=== PATIENT | male | born 1950 | race Caucasian/White ===

== ENCOUNTER 2025-04-14 08:49 | Day surgery (SDC) | payer OTHER, SELFPAY ==
[2025-04-14] VITALS (14 sets, daily range): BP systolic 133–164; BP diastolic 75–111; BMI 26.4
[2025-04-14] MEDS: NSS 251 ML IV (10:13)
[2025-04-14] MEDS: LOW STRENGTH ASPIRIN 162 MG PO (10:18)
[2025-04-14 11:49] LABS: ACT-LR - POC 342 Seconds (116-155)
[2025-04-14] MEDS: ATROPINE 0.1 MG/ML SYRINGE 1 MG IV (13:00)
--- NOTE | 2025-04-14 13:06 | PTCARENOTE ---
[facility] in laboratory chemist due to low hr . atropine 0.5 and then 2nd dose atropine 0.5 . pt still 05/11 .
[2025-04-14] MEDS: ZOFRAN 4 MG IV (13:10)
[2025-04-14] MEDS: SUBLIMAZE 25 MCG IV (13:12)
--- NOTE | 2025-04-14 13:15 | PTCARENOTE ---
pt still co cp 8/10 bp 137/77 hr 103, sat 97 rr 20/ 2 mg morphine ordered
--- NOTE | 2025-04-14 13:21 | PTCARENOTE ---
02 nc 4l applied when zofran and fentanly given at 109pm
[2025-04-14] MEDS: MORPHINE SULFATE 2 MG IV (13:32)
--- NOTE | 2025-04-14 13:40 | PTCARENOTE ---
pt chest pain down to 4/10
--- NOTE | 2025-04-14 15:05 | PTCARENOTE ---
pt states chest pain is now a 1/10. he is sitting up , eating and drinking without difficulty or nausea .
--- NOTE | 2025-04-14 16:24 | W.PN.UPDATE ---
Update Note
Progress Note Update
Pt seen post LAD PCI, c/o 10/10 chest pain. EKG NSR without acute changes. BP 150s. Given 1 SL NTG. Within 5 minutes, pt had vagal response with HR 20s, SBP 80s. Given 1mg atropine with good response, HR up to 80s with SBP 130s, still c/o chest
pain. Given fentanyl 25mcg as well as morphine 2mg. Now comfortable with 1-2/10 chest pain. This is likely post arterial balloon expansion pain. A bedside echo revealed nml LV function and no pericardial effusion.
Will admit pt to IVU for overnight telemetry observation.
--- NOTE | 2025-04-14 16:51 | CM ---
Chart reviewed. Patient is independent of ADLS, lives with his in a 2 STH, 1st level set up, 1 RITA, 0 DME. Plan is for the patient to return home.
--- NOTE | 2025-04-14 18:15 | PTCARENOTE ---
Pt received from cath recovery area post cardiac cath done via right radial artery. Pt reported 1/10 chest discomfort on arrival to IVU which resolved. Pt is aware of some 'skipped heart beats and a feeling like going down a roller coaster', some
bigeminy noted on telemetry. Right radial band removed without problem per protocol, no bleeding or hematoma noted. Pt voiding without difficulty.
[2025-04-14] MEDS: PEPCID 20 MG PO (19:38)
[2025-04-14] MEDS: TOPROL XL 25 MG PO (19:39)
--- NOTE | 2025-04-14 19:42 | ITS.CL.CATH ---
[facility] - Catheterization
Cardiac Catheterization
Procedure Report:
LEFT HEART CATHETERIZATION
Date of Procedure: April 14, 2025
Procedures performed:
1: Coronary angiography
2: Left ventricular hemodynamic assessment
3: Percutaneous coronary intervention of the left anterior descending artery with placement of a 3.0 x 22 mm Rush drug-eluting stent
Primary Care Physician: Dr. Sha Sibley
Primary Information Developer: Dr. Jose Jasso
INDICATION: The patient is a 74-year-old man with a past medical history significant for hypertension and hyperlipidemia who presents with accelerated crescendo angina. Echocardiogram performed on April 12 showed normal LV systolic function with no
regional wall motion abnormality and no significant valvular heart disease.
ACCESS: The patient was prepped and draped in usual sterile fashion. A 6 Georgian sheath was placed in the right radial artery using the Seldinger over the wire technique.
HEMODYNAMIC FINDINGS (mmHg):
LV(s/d,EDP): 147/11, 18
Ao(s/d,m): 147/77, 109
ANGIOGRAPHIC FINDINGS:
Single-plane Left Ventriculography in NICOLAS Projection: Not done
Coronary Angiography:
Dominance: Right
Left Main: Medium caliber, widely patent.
Left Anterior Descending: The left anterior descending artery is a medium caliber vessel that gives rise to 1 medium caliber diagonal branch. The mid LAD has moderate luminal irregularities followed by a preocclusive focal 99% mid LAD with KM II
distal flow in the apical vessel. The diagonal branch has moderate nonobstructive disease with normal flow.
Left Circumflex: The left circumflex is a relatively large caliber vessel that gives rise to a medium caliber high first obtuse marginal branch. The proximal vessel has moderate diffuse disease with at worst 2 tandem 50 to 60% stenoses in the mid
vessel with normal distal flow. The circumflex continues to give rise to 2 very small OM's and terminates in 3 medium caliber left-sided posterior left ventricular branches.
Right Coronary: The right coronary artery is a relatively small caliber but dominant vessel that gives rise to a medium caliber posterior descending artery. These vessels are widely patent with only mild luminal irregularities. A septal to septal
collateral is noted to the LAD.
Percutaneous Coronary Intervention (PCI): In light of the patient's symptoms and the above angiographic findings I chose to perform a PCI on the LAD. The patient was pretreated with aspirin. A loading dose of clopidogrel 600 mg was given on the
table at the end of the intervention. The patient was given unfractionated heparin. A 6 Georgian XB 3.0 guiding catheter was used to engage the left main. A Fielder XT wire was successfully advanced across the preocclusive stenosis. Distal
intraluminal position was confirmed with a [employer] QuickCross catheter injection. Predilation was performed with a 2.0 x 12 mm balloon. This restored antegrade flow. Next a 3.0 x 22 mm Rush drug-eluting stent was deployed at the lesion.
The stent was postdilated with a 3.0 mm diameter noncompliant balloon at 16 ivon. This was done in a distal to proximal fashion taking care to stay within the stented margins.
FINAL RESULT: 0% in-stent residual stenosis with an excellent angiographic result and KM-3 flow in all vessels.
Fluoroscopy Time (min): 9.5
Radiation Dose (mGy): 423
DAP (Gy.cm2): 23
Closure device: None. A TR band was applied for hemostasis at the right wrist.
Complications: None.
ASSESSMENT:
1: Successful PCI of the LAD with placement of a drug-eluting stent as described above.
2: Residual moderate OM1 disease. I suspect this is not flow-limiting and can be treated medically.
3: Normal left ventricular filling pressures.
CONCLUSIONS and RECOMMENDATIONS:
1: Routine post PCI medical therapy and monitoring. Dual antiplatelet therapy with aspirin and Plavix uninterrupted for a year and aspirin 81 mg daily without interruption indefinitely.
2: Aggressive medical therapy for coronary artery disease.
3: Clinical follow-up as scheduled with Dr. Jasso
Javad Maya M.D.
Copy to: Dr. Sha Sibley
--- NOTE | 2025-04-14 22:02 | PTCARENOTE ---
Received patient at change of shift. SR on the monitor with PVCs and occasional bigeminy, HR in the 60s. R radial dressing CDI, no evidence of hematoma. Reinforced activity restrictions, pt verbalizes understanding. No complaints from pt at this
time, call hays within reach.
[2025-04-15 02:54] VITALS: BP 174/98
[2025-04-15 03:21] VITALS: BP 171/101
[2025-04-15 03:35] LABS: Hematocrit 42.2 % (39.0-52.0); Hemoglobin 15.3 g/dL (13.0-18.0); Mean Corp Hgb Conc. 36.3 g/dL (33.0-37.0); Mean Corpuscular Hgb 32.6 pg (27.0-31.0); Mean Corpuscular Volume 89.8 fL (80.0-94.0); Platelet Count 143 10^3/uL (130-400); Red Cell Dist. Width 12.2 % (11.5-14.5); White Blood Cell Count 5.8 10^3/uL (4.8-10.8)
[2025-04-15 03:52] LABS: Blood Urea Nitrogen 19 mg/dl (9-20); Calcium 8.8 mg/dl (8.4-10.2); Carbon Dioxide 25 mmol/L (22-30); Chloride 108 mmol/L (98-107); Estimated Creatinine Clearance 85 ml/min; Glucose 100 mg/dl (70-99); HDL Cholesterol 40 mg/dl; LDL Cholesterol, Calculated 149 mg/dl; Potassium 4.2 mmol/L (3.5-5.1); Sodium 139 mmol/L (135-145); Total Cholesterol 207 mg/dl (50-199); Triglyceride 93 mg/dl (10-149); Very Low Density Lipoprotein 18 mg/dl (0-30); eGFR > 60.00
[2025-04-15 07:38] VITALS: BP 181/98
[2025-04-15] MEDS: PLAVIX 75 MG PO (07:58)
[2025-04-15] MEDS: ORETIC 6.25 MG PO (07:59)
[2025-04-15] MEDS: COZAAR 25 MG PO (08:00)
[2025-04-15] MEDS: TOPROL XL 25 MG PO (08:00)
[2025-04-15] MEDS: PEPCID 20 MG PO (08:00)
[2025-04-15] MEDS: LOW STRENGTH ASPIRIN 81 MG PO (08:00)
--- NOTE | 2025-04-15 09:33 | W.PN.CARDCBS ---
Addendum entered and electronically signed by Apolonia Flores DO 04/15/25 12:44:
I saw and examined the patient.
The Pediatrics Physician's note was reviewed and I agree with the note.
Comment: Patient was seen and examined. Offers no complaints of chest pain or pressure. No shortness of breath.
General: No acute distress, AAOX3
Neck: Negative JVD
Heart: Regular, positive S1/S2, No murmur
Lungs: CTA
Abd: Positive BS, NT/ND, neg rebound/rigidity/guarding
Ext: No edema. Right radial site intact
Neuro: nonfocal
Plan:
Unstable angina status post LAD PCI with a 3X 22 mm Rush JIMENEZ 04/14/2025
- Hemodynamically stable with no chest pain or shortness of breath
- Post PCI had vasovagal episode
- Blood pressure elevated this morning with symptomatic frequent PVCs and bigeminy on telemetry in the setting of held antihypertensive therapy
- Will resume outpatient medical therapy including metoprolol succinate 25 mg twice daily.
- Will monitor blood pressure trends following administration of outpatient medications and continue to watch telemetry
- Ambulate patient in the acuna
- If symptoms and blood pressure improved with plan for discharge home later today
- Continue uninterrupted dual antiplatelet therapy with aspirin/Plavix for at least 1 year
- Suboptimal LDL at 149/increase rosuvastatin to 20 mg daily and repeat in 3 months
- Cardiac rehab consulted and strongly advised outpatient cardiac rehab
- Anticipate discharge home later today pending reassessment this afternoon
Original Note:
Today's Communication / Plan
-
post PCI, events post cath noted
resume home meds
increase rosuvastatin
possibly home later today
Impression / Plan
-
Primary Care Physician: Dr. Sha Sibley
Primary Ethics Manager: Dr. Jose Jasso
74-year-old man with a past medical history significant for hypertension and hyperlipidemia who presents with accelerated crescendo angina. Echocardiogram performed on April 12 showed normal LV systolic function with no regional wall motion
abnormality and no significant valvular heart disease.
Impression:
Crescendo Angina
CAD post PCI LAD with 3.0 x 22 mm Rush JIMENEZ 04/14/25
Hyperlipidemia
HTN
HARSHAL
Plan:
post PCI had significant CP and vasovagal episode post procedure
this am feels great, no CP, sob
BP elevated, tele with symptomatic PVCs with bigeminy
Resume home meds losartan-HCTZ, metoprolol
DAPT ASA/Plavix
LDL 149 will increase rosuvastatin to 20mg daily
cardiac rehab c/s
oob ambulate
if bp/ PVC's improved plan for d/c home this afternoon
Progress Note - Ethics Manager
Subjective
Date of Service: April 15, 2025
denies cp, sob
Objective
Labs:
04/15/25 02:58
04/15/25 02:58
Labs
Hgb 15.3 g/dL (13.0-18.0) 04/15/25 02:58
Hct 42.2 % (39.0-52.0) 04/15/25 02:58
Plt Count 143 10^3/uL (130-400) 04/15/25 02:58
Sodium 139 mmol/L (135-145) 04/15/25 02:58
Potassium 4.2 mmol/L (3.5-5.1) 04/15/25 02:58
BUN 19 mg/dl (9-20) 04/15/25 02:58
Creatinine 0.8 mg/dL (0.7-1.3) 04/15/25 02:58
Glucose 100 mg/dl (70-99) H 04/15/25 02:58
Vital Signs and I&O:
Vital Signs
Temp Pulse Resp BP Pulse Ox
98.3 F 69 20 181/98 97
04/15/25 07:39 04/15/25 08:15 04/15/25 07:39 04/15/25 07:38 04/15/25 08:21
Vital Signs
Temp Pulse Resp BP Pulse Ox
98.3 F 69 20 181/98 97
04/15/25 07:39 04/15/25 08:15 04/15/25 07:39 04/15/25 07:38 04/15/25 08:21
Intake & Output
04/13/25 04/14/25 04/15/25 04/16/25
06:59 06:59 06:59 06:59
Intake Total 1740 / 1740
Output Total 300 / 300
Balance 1440 / 1440
Physical Exam
Physical Exam
NAD< AOX3
S1, S2, RRR
CTAB, non labored
SNTND bsx4
R rad site c/d/i no HT, good pulse
--- NOTE | 2025-04-15 10:43 | CM ---
Chart reviewed. Patient is independent of ADLS, lives alone in a 2 STH, 1st level set up, 1 RITA, 0 DME. Plan is for the patient to return home. CM to follow
[2025-04-15 11:03] VITALS: BP 158/94
--- NOTE | 2025-04-15 13:29 | PTCARENOTE ---
Pt seen by Bhavya Martin NP and . pt waking around unit without problem. Telemetry and IV device removed. Discharge instructions revoiewed with pt and his regarding activity and driving guidelines, wound care, medications and their
possible side effects, reporting cares and concerns and follow up appt's. Very good understanding verbalized. pt escorted out via wheelchair and discharged to home.
--- NOTE | 2025-04-15 14:08 | W.DS.TRANS ---
DC Summary - Reuse Technician
-
Discharge Instructions:
Discharge Diagnosis/Procedures Angioplasty and stent to Left Anterior
Descending artery
Diet Low Cholesterol
Driving Restrictions No driving for 24 hours
Other Services Cardiac Rehab
Instructions:
Stand-Alone Forms: DC Instructions- Cath/EP Lab
Changes to Home Medications: Yes
Discharge Medications:
DC Medications w/original date entered in [employer]
ascorbic acid (vitamin C) 500 mg tablet (Vitamin C) 500 mg PO BID 04/14/25
aspirin 81 mg chewable tablet 81 mg PO DAILY 04/14/25
clopidogrel 75 mg tablet 75 mg PO DAILY #90 tabs 04/14/25
famotidine 20 mg tablet 20 mg PO BID 04/14/25
losartan 50 mg-hydrochlorothiazide 12.5 mg tablet 0.5 tab PO DAILY 04/14/25
metoprolol succinate 25 mg tablet,extended release 24 hr 25 mg PO BID 04/14/25
multivitamin 1 tab PO DAILY 04/14/25
rosuvastatin 20 mg tablet 20 mg PO QPM #30 tabs 04/15/25
Home Medication Changes
new to plavix, increased rosuvastatin dose
Pending Results: No
== END 2025-04-15 13:32 | disposition home or self-care (01) ==
LOC: CATH 08:49
PROVIDERS: Nurse Practitioner; ATTENDING PHYSICIAN Internal Medicine Interventional Cardiology; OTHER PHYSICIAN Internal Medicine; PRIMARYCARE PHYSICIAN Family Medicine
DX: I25.10 Atherosclerotic heart disease of native coronary artery without angina pectoris (principal); Z79.82 Long term (current) use of aspirin; Z79.02 Long term (current) use of antithrombotics/antiplatelets; Z79.899 Other long term (current) drug therapy; E78.5 Hyperlipidemia, unspecified; G47.33 Obstructive sleep apnea (adult) (pediatric); I10 Essential (primary) hypertension; I25.110 Atherosclerotic heart disease of native coronary artery with unstable angina pectoris; I49.3 Ventricular premature depolarization; Z95.5 Presence of coronary angioplasty implant and graft
CPT/HCPCS: 80048; 80061; 85027; 85347; 93005; 93308; 93321; 93325; 93458; C1725; C1769; C1874; C1894; C9600; Q9967

== ENCOUNTER 2025-04-18 18:31 | Day surgery (SDC) | payer OTHER, SELFPAY ==
[2025-04-18] VITALS (10 sets, daily range): BP systolic 125–162; BP diastolic 75–88; BMI 26.7
[2025-04-18 14:34] LABS: % Basophils 1.3 % (0-2); % Eosinophils 3.4 % (0-6); % Immature Granulocytes 0.2 % (0-0.5); % Lymphocytes 23.4 % (20.5-51.1); % Neutrophils 55.7 % (42.2-75.2); Absolute Basophils 0.1 10^3/uL (0-0.2); Absolute Eosinophils 0.2 10^3/uL (0-0.7); Absolute Lymphocytes 1.1 10^3/uL (1.2-3.4); Absolute Monocytes 0.8 10^3/uL (0.1-0.6); Absolute Neutrophils 2.7 10^3/uL (1.4-6.5); Hemoglobin 16.5 g/dL (13.0-18.0); Mean Corp Hgb Conc. 35.1 g/dL (33.0-37.0); Mean Corpuscular Hgb 32.7 pg (27.0-31.0); Mean Corpuscular Volume 93.3 fL (80.0-94.0); Nucleated Red Blood Cells % 0 % (-); Platelet Count 169 10^3/uL (130-400); Red Blood Cell Count 5.04 10^6/uL (4.70-6.10); Red Cell Dist. Width 12.7 % (11.5-14.5); White Blood Cell Count 4.8 10^3/uL (4.8-10.8)
[2025-04-18 14:43] LABS: ALT (SGPT) 36 U/L (0-50); AST (SGOT) 18 U/L (17-59); Alkaline Phosphatase 37 U/L (38-126); Blood Urea Nitrogen 28 mg/dl (9-20); Calcium 9.8 mg/dl (8.4-10.2); Carbon Dioxide 28 mmol/L (22-30); Chloride 105 mmol/L (98-107); Estimated Creatinine Clearance 85 ml/min; Glucose 76 mg/dl (70-99); Potassium 4.4 mmol/L (3.5-5.1); Sodium 141 mmol/L (135-145); Total Bilirubin 1.8 mg/dl (0.2-1.3); Total Protein 7.5 g/dl (6.3-8.2); eGFR > 60.00
--- NOTE | 2025-04-18 14:50 | ED.GENMED ---
History of Present Illness
General
Chief Complaint: Chest Pain
Source: patient and records
Exam Limitations: none
Time Seen by Provider: 04/18/25 14:13
History of Present Illness
History of Present Illness:
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 Maya stayed overnight, stent was placed in his LAD developed chest pain today with coming out of sikhism lasted about half hour in his left arm
into his chest somewhat different than his prior angina, relieved with aspirin
No fevers no nausea vomiting or diaphoresis has been compliant with all his meds
Phy Exam
Physical Exam
Physical Exam:
Physical Exam
General: no apparent distress, not acutely ill
Neck: No jaundice
Heart: s1/s2 regular rate and rhythm, no murmur. equal radial pulses.
Lungs: no acute respiratory distress. clear bilaterally
Abdomen: Nontender
Neuro: alert and oriented. no focal neurological deficits
Skin: no rash
Psychiatric: well kept. interactive and cooperative
Extremities: no edema. no calf tenderness. Well-healing puncture in the right wrist
Scores
Heart Score for Chest Pain Patients
STEMI patient?: No
History: Slightly or Non-Suspicious
ECG: Nonspecific Repolarization
Age: >/= 65 years
Risk Factors: >/= 3 Risk Factors or History of CAD
Troponin: >1 - <3 x Normal Limit
Heart Score for Chest Pain Patients: 6
Heart Score Risk: 20.3% MACE over next 6 weeks
Course
Orders/Labs/Results
Orders:
Orders
04/18/25 14:11
EKG [Electrocardiogram (*1)] Urgent
Reason for Study: Chest Pain
EKG- Treatment ONCE
04/18/25 14:13
Complete Blood Count/With Diff Urgent
Comprehensive Metabolic Panel Urgent
Troponin I Urgent
04/18/25 14:50
CR Chest - 2 Views Urgent
Comment:
Reason For Exam: cp
04/18/25 16:26
Electrocardiogram (*1) Urgent
Reason for Study: Chest Pain
EKG- Treatment ONCE
04/18/25 16:28
Troponin I Urgent
Abnormal Lab Results
04/18/25
14:13
MCH 32.7 H pg
(27.0-31.0)
Absolute Lymphs (auto) 1.1 L 10^3/uL
(1.2-3.4)
Absolute Monos (auto) 0.8 H 10^3/uL
(0.1-0.6)
Monocytes % 16.0 H %
(1.7-9.3)
BUN 28 H mg/dl
(9-20)
Total Bilirubin 1.8 H mg/dl
(0.2-1.3)
Alkaline Phosphatase 37 L U/L
(38-126)
Troponin I 1.060 H* ng/ml
04/18/25 14:13
04/18/25 14:13
Vital Signs
Initial and Last Documented VS:
Initial Vital Signs
Temp Pulse Resp BP Pulse Ox
97.9 F 60 11 146/84 99
04/18/25 14:13 04/18/25 14:13 04/18/25 14:13 04/18/25 14:13 04/18/25 14:13
Last Documented Vital Signs
Temp Pulse Resp BP Pulse Ox
97.9 F 61 15 125/78 94
04/18/25 14:13 04/18/25 16:15 04/18/25 16:15 04/18/25 16:00 04/18/25 14:45
MDM/Problems Addressed
Differential Diagnosis Includes:
ACS stent occlusion noncardiac chest pain
MDM/Problems Addressed:
Chest pain
Chronic conditions affecting care: HTN and CAD
Acute Exacerbation and/or Progression of Chronic Illness: HTN and CAD
*Radiology
Radiology exam reviewed: radiology read reviewed
*Pulse Oximetry
Patient hypoxic: no
*EKG
Interpreted by ED Provider?: Yes
Interpretation: normal
Comparison EKG: no comparison EKG present
Heart Rate: 78
Rate: normal
Rhythm: sinus
Ischemia: non-specific ST changes
*Engineering Technology Instructor Interpretation
Rate: normal
Interpretation: normal
Heart Rate: 78
Rhythm: sinus
*Critical Care Note
Total Time (30-74mins, 75-104mins- exclusive of procedures): 11
Data Reviewed
Review of Other/Old Records Reveals: Labs, Records, Operative Reports and Discharge Summary
Source: patient and records
Prescriptions/Medications Considered But Not Given:
Nitroglycerin and heparin
Further Testing Considered But Not Given:
CT of the chest
Update Note
Update Note:
Update, troponin noted none measured during his recent admission did have an episode of chest pain today EKG noted briefly reviewed with his outpatient light rail transit operator who performed the procedure, and inpatient noninvasive cardiology will be admitted,
follow his enzyme trend,
ED Attending Note
-
Portions of this chart may have been created with voice recognition software.� Occasional wrong word or��sound alike� substitutions may have occurred due to the inherent limitations of voice recognition software.
Discharge Plan
Departure
Patient Disposition: Admit
Date of Disposition: 04/18/25
Time of Disposition: 16:45
Admit to: Telemetry
Presentation/result/management discussed w/ accepting MD/DO: Hospitalist
Patient with high blood pressure during this ER visit?: No
Condition: Good
Discharge Problem:
Chest pain
Prescriptions:
No Action
famotidine 20 mg Tablet
20 mg PO BID
metoprolol succinate 25 mg Tablet Extended Release 24 Hr
25 mg PO BID
losartan-hydrochlorothiazide 50-12.5 mg Tablet
0.5 tab PO DAILY
aspirin 81 mg Tablet,Chewable
81 mg PO DAILY
ascorbic acid (vitamin C) [Vitamin C] 500 mg Tablet
500 mg PO BID
multivitamin Tablet
1 tab PO DAILY
clopidogrel 75 mg tablet
75 mg PO DAILY Qty: 90 3RF
rosuvastatin 20 mg tablet
20 mg PO QPM Qty: 30 5RF
Referrals:
Sha Sibley MD [Family Provider] -
Interventions
Interventions:
*Risk Screen - Suicide Last Done: 04/18/25 14:19
*General Assessment Last Done: 04/18/25 14:19
*Neglect/Abuse Screening Last Done: 04/18/25 14:19
*ED- Fall Risk Assessment Last Done: 04/18/25 14:19
*ED COVID-19 Vaccine History Last Done: 04/18/25 14:19
ED- Cardiac Assessment Last Done: 04/18/25 14:23
Discharge Date and Time
Print Language: FRISIAN
--- NOTE | 2025-04-18 16:58 | HPS.HSE ---
Family Physician
-
Family Physician: Sha Sibley
Chief Complaint
-
chest pain
History of Present Illness
Patient is a 74-year-old male with past medical history significant for CAD, hypertension and hyperlipidemia who presented to [facility] ED for evaluation of chest pain. Patient with recent hospitalization for accelerated crescendo angina who underwent
cardiac catheterization with PCI to LAD. Patient states that today around noon after [employer] he was standing talking with fellow parishioners when he noticed a dull ache in his left arm, when he left while driving he stated that the ache traveled up
arm, across chest and to left neck and jaw line. He reports when he got home the discomfort was not improving and he now noticed some lightheadedness and mild diaphoresis so he called EMS for transport. Patient states after taking aspirin symptoms
improved. He denies any fever, chills, cough, shortness of breath, nausea, vomiting, constipation, diarrhea or urinary symptoms.
Medical History
Past Medical History
Past Medical History: Reports Other
Additional Past Medical History:
CAD
hypertension
hyperlipidemia
Past Surgical History: Reports Other
Additional Past Surgical History:
cardiac catheterization with stent
Social History
Tobacco: Non-smoker
Alcohol: None
Drug: None
Personal:
Living: With Family
Employment: Employed
Family History
Family History: Other (Father: CAD with bypass; Brother: a-fib; Sister: a-fib)
Allergies / Home Medications
Allergies reflects when Allergies were last updated in [employer].
Home Medications with original date entered in [employer]
Allergy/Medication List:
Allergies
Allergy/AdvReac Type Severity Reaction Status Date / Time
No Known Allergies Allergy Verified 04/18/25 14:19
Home Medications
aspirin 81 mg chewable tablet 81 mg PO DAILY 04/14/25
clopidogrel 75 mg tablet 75 mg PO DAILY #90 tabs 04/14/25
famotidine 20 mg tablet 20 mg PO BID 04/14/25
losartan 50 mg-hydrochlorothiazide 12.5 mg tablet 0.5 tab PO DAILY 04/14/25
metoprolol succinate 25 mg tablet,extended release 24 hr 25 mg PO BID 04/14/25
multivitamin 1 tab PO DAILY 04/14/25
rosuvastatin 20 mg tablet 20 mg PO QPM #30 tabs 04/15/25
Review of Systems
-
History Source: Patient
Constitutional: Reports No Symptoms
EENT: Reports No Symptoms
Respiratory: Reports No Symptoms
Cardiac: Reports Chest Pain (radiation to left arm, left neck and left jawline ) and Diaphoresis (mild)
Abdomen/GI: Reports No Symptoms
: Reports No Symptoms
Musculoskeletal: Reports No Symptoms
Skin: Reports No Symptoms
Neurological: Reports No Symptoms
Endocrine: Reports No Symptoms
Hematologic/Lymphatic: Reports No Symptoms
Psych: Reports No Symptoms
Physical Exam
Vital Signs
Vital Signs
Temp Pulse Resp BP Pulse Ox
97.9 F 61 15 125/78 94
04/18/25 14:13 04/18/25 16:15 04/18/25 16:15 04/18/25 16:00 04/18/25 14:45
Physical Exam
General: Well Developed, Well Nourished, No Apparent Distress, Comfortable and Conversant
HEENT: NormoCephalic, Moist mucous membranes, Atraumatic, [place] Conjunctivae, Nose Appears Normal and Ears Appear Normal
Respiratory: Clear
Cardiac: S1/S2 and Regular Rhythm
Breast: Deferred by me
GI: Soft, Non Tender, Non Distended and Normal Bowel Sounds; No Organomegaly
Rectal: Deferred by Provider
Genito-urinary: Deferred by me
Musculoskeletal: No Clubbing, No Cyanosis and No Edema
Skin: Warm and IV/Catheter Site; No Rash
Neuro: Awake, Alert, AO x 3 and Nonfocal/grossly intact
Psych: Calm and Intact Judgment/Insight
Laboratory Results
-
04/18/25 14:13
04/18/25 14:13
Laboratory Results
Total Bilirubin 1.8 mg/dl (0.2-1.3) H 04/18/25 14:13
AST 18 U/L (17-59) 04/18/25 14:13
ALT 36 U/L (0-50) 04/18/25 14:13
Alkaline Phosphatase 37 U/L (38-126) L 04/18/25 14:13
Troponin I 1.060 ng/ml H* 04/18/25 14:13
Data Reviewed
-
Diagnostic Radiology: Report Reviewed by me (CXR: No acute cardiopulmonary process.)
Medical Tests (Nuc Med, Echo, EKG etc): Report Reviewed by me (EKG: NORMAL SINUS RHYTHM POSSIBLE ANTERIOR INFARCT (CITED ON OR BEFORE 18-APR-2025))
Lab Data: Labs Reviewed by me (Trop 1.060, 1.010)
Impression/Plan
-
IMPRESSION/PLAN:
#chest pain
#CAD
cardiac catheterization with PCI to LAD 04/14/2025
Trop 1.060, 1.010
CXR: No acute cardiopulmonary process.
EKG: NORMAL SINUS RHYTHM
POSSIBLE ANTERIOR INFARCT (CITED ON OR BEFORE 18-APR-2025)
- Admit to IVU
- trend troponin
- ED physician reports cardiology said to hold off on Heparin gtt unless chest pain returns, or troponin trends up
- continue aspirin, clopidogrel and metoprolol
#hypertension
- continue losartan-HCTZ and metoprolol
#hyperlipidemia
- continue rosuvastatin
Code status: full code
DVT prophylaxis: Lovenox sq
--- NOTE | 2025-04-18 18:24 | W.PN.UPDATE ---
Update Note
Progress Note Update
This is an addendum to H&P written by Renetta Penaloza on 04/18/2025.� Patient seen examined independently with CUSTOMER ENGAGEMENT ANALYST.
74-year-old male past medical history of CAD status post PCI on 04/14, hyperlipidemia, hypertension, obstructive sleep apnea, recently underwent PCI in 04/14 and was doing well afterwards when he again developed chest pressure today radiating to the
jaw and left arm.� Resolved after taking 4 aspirin.
EKG unremarkable.� Troponin of 1.06 trending down to 1.01.� Trend troponins.� Cardiology consulted.� Continue aspirin and Plavix.� Start heparin drip if troponins rise or patient develop chest pain.
[2025-04-18] MEDS: TOPROL XL 25 MG PO (20:34)
[2025-04-18] MEDS: PEPCID 20 MG PO (20:35)
[2025-04-18] MEDS: LOVENOX 40 MG SC (20:35)
--- NOTE | 2025-04-18 20:53 | PTCARENOTE ---
Received patient from ED. SR/SB on the monitor, HR in the 50-60s. VSS on room air. Patient alert and oriented. No chest pain at this time, patient educated on the importance of alerting nurse if any chest pain. Admission assessment completed.
Oriented pt to room. No complaints from pt at this time, call hays within reach.
[2025-04-18 21:01] LABS: Troponin I 0.931 ng/ml
[2025-04-19] VITALS (16 sets, daily range): BP systolic 111–144; BP diastolic 49–91; BMI 26.4
[2025-04-19 04:55] LABS: Hematocrit 42.7 % (39.0-52.0); Hemoglobin 15.4 g/dL (13.0-18.0); Mean Corp Hgb Conc. 36.1 g/dL (33.0-37.0); Mean Corpuscular Hgb 32.5 pg (27.0-31.0); Mean Corpuscular Volume 90.1 fL (80.0-94.0); Platelet Count 154 10^3/uL (130-400); Red Blood Cell Count 4.74 10^6/uL (4.70-6.10); Red Cell Dist. Width 12.4 % (11.5-14.5); White Blood Cell Count 3.8 10^3/uL (4.8-10.8)
[2025-04-19 05:24] LABS: ALT (SGPT) 35 U/L (0-50); AST (SGOT) 16 U/L (17-59); Albumin 4.4 g/dl (3.5-5.0); Alkaline Phosphatase 34 U/L (38-126); Blood Urea Nitrogen 23 mg/dl (9-20); Calcium 9.1 mg/dl (8.4-10.2); Carbon Dioxide 24 mmol/L (22-30); Chloride 109 mmol/L (98-107); Estimated Creatinine Clearance 85 ml/min; Glucose 94 mg/dl (70-99); HDL Cholesterol 37 mg/dl; LDL Cholesterol, Calculated 126 mg/dl; Potassium 4.1 mmol/L (3.5-5.1); Sodium 140 mmol/L (135-145); Total Bilirubin 2.4 mg/dl (0.2-1.3); Total Cholesterol 184 mg/dl (50-199); Total Protein 6.4 g/dl (6.3-8.2); Triglyceride 108 mg/dl (10-149); Very Low Density Lipoprotein 21 mg/dl (0-30); eGFR > 60.00
--- NOTE | 2025-04-19 08:24 | CON.CAR ---
Addendum entered and electronically signed by George Tavares MD 04/19/25 10:36:
I saw and examined the patient.
The CHANGE MANAGEMENT ADMINISTRATOR or PA's note was reviewed and I agree with the note.
Comment: General: Well developed, well nourished in NAD.
Neck: Supple, no JVD, HJR, carotids +2 B/L, no bruits bilaterally.
Heart: Non displaced PMI, RRR, no murmurs, No S3, S4, no rubs.
Lungs: Clear to auscultation bilaterally, no wheeze, rhonchi, rubs bilaterally,
normal expiratory phase.
Abdomen: Normal bowel sounds, soft, non-tender, non-distended.
Extremities: No clubbing, cyanosis or edema bilaterally.
Neuro: Grossly nonfocal, awake, alert and oriented x3
Michael has a history of hypertension, hyperlipidemia, untreated sleep apnea, CAD status post LAD stent on 04/14/2025. He presents with left arm, chest, neck pain. It occurred at rest and persisted. He came to the ER and was admitted. Troponin
was 0.9 then went to 1.0 then 1.1 discussed with patient in detail. Discussed with Dr. Maya. Will plan on cardiac catheterization later today. Of note his current discomfort is different than his symptoms at the time of LAD stent but with
elevated troponins and chest pain feel cardiac catheterization is indicated..
Original Note:
Consultation
Consultation Request
Date/Time Consultation Requested: 04/18/2025
Date/Time Consultation Performed: 04/19/2025
Requesting Provider: DIONNE Tristan
Performing Provider: Mery Billy PA-C for Dr. Tavares
Reason for Consultation: Chest pain
Medical History
-
History of Present Illness:
Patient is a 74-year-old male with past medical history significant for hypertension, hyperlipidemia, untreated sleep apnea and palpitations who was recently here and underwent LAD stenting for chest pain. He was also found to have on treated
residual 50-60% tandem stenosis in mid circumflex. Patient reports he felt great when he left without chest pain. While he was at congregation on 04/18/2024 he developed chest pain. Shortly after when driving home pain started radiating into the arm
across check into the left-sided neck and jaw. Shortly thereafter he developed lightheadedness and some diaphoresis and called 911. He was given 4 baby ASA. Episode lasted 30 minutes. Initial troponin 1.06 with repeat troponin slowly trending
down. EKG sinus rhythm without ischemic changes. Chest x-ray showed no acute cardiopulmonary process. Blood pressure was reasonably controlled in emergency department. Patient has been chest pain-free since admission.
PMH:
CAD
s/p LAD with 3.0 x 22 mm Rush JIMENEZ 04/14/25
Hyperlipidemia
HTN
HARSHAL intolerant to CPAP
Palpitations
Past Medical History
Past Medical History: Other (See HPI)
Past Surgical History: Cardiac (LAD JIMENEZ 04/14/2025)
Social History
Tobacco: Non-Smoker
Alcohol: None
Drug: None
Family History
Family History: CAD (Father CABG x 2) and Other (Brother Sister both w/ A-fib)
Allergies / Home Medications
Allergy/AdvReac Type Severity Reaction Status Date / Time
No Known Allergies Allergy Verified 04/18/25 14:19
�Medication �Instructions �Recorded �Confirmed �Type
aspirin 81 mg chewable tablet 81 mg PO DAILY 04/14/25 04/18/25 History
clopidogrel 75 mg tablet 75 mg PO DAILY #90 tabs 04/14/25 04/18/25 Rx
famotidine 20 mg tablet 20 mg PO BID 04/14/25 04/18/25 History
losartan 50 mg-hydrochlorothiazide 0.5 tab PO DAILY 04/14/25 04/18/25 History
12.5 mg tablet
metoprolol succinate 25 mg 25 mg PO BID 04/14/25 04/18/25 History
tablet,extended release 24 hr
rosuvastatin 20 mg tablet 10 mg PO BID 04/18/25 04/18/25 History
therapeutic multivitamin 1 tab PO DAILY 04/18/25 04/18/25 History
Physical Exam
Vital Signs
Temp Pulse Resp BP Pulse Ox
97.3 F 62 20 119/77 93
04/19/25 07:14 04/19/25 06:00 04/19/25 07:14 04/19/25 04:14 04/19/25 07:14
Lab Results
04/19/25 04:40
04/19/25 04:40
Troponin I Cancelled 04/18/25 23:12
Impression / Plan
-
Primary Care Physician: Dr. Sha Sibley
Primary Electrical Sign Wirer Helper: Dr. Jose Jasso
Impression:
Presented 04/18/2025 w/ chest pain with radiation into left arm, jaw associated with lightheadedness and diaphoresis
Abnormal troponin
CAD
s/p LAD with 3.0 x 22 mm Rush JIMENEZ 04/14/25
Hyperlipidemia
HTN
Palpitations
HARSHAL intolerant to CPAP
Echocardiogram 04/12/2025 ([facility]): Preserved EF w/ normal LV systolic function with no regional wall motion abnormality and no significant valvular heart disease.
Cardiac cath 04/14/2025: LM: Patent. LAD: 99% mid LAD s/p 3.0 x 22 mm Rush drug-eluting stent. Left circumflex: Moderate diffuse disease with 2 tandem 50 to 60% stenosis in mid vessel with normal distal flow. RCA: LI. Septal to septal collateral
is noted to LAD
Plan:
- Presented 04/18/2025 with 30 minutes of chest pain with radiation into left arm, jaw associated with lightheadedness and diaphoresis. Reports the symptoms were very different than symptoms he had prior to stenting
- Patient recently here on 04/14/2025 for which he underwent LAD stent with Dr. Maya
- Abnormal troponin, initially 1.060 and slowly trending downward after
- EKG sinus rhythm without ischemic changes.
- Has been remained chest pain-free since admission.
- Check echocardiogram
- After discussion with Dr. Geronimo and plan will be to proceed with left heart catheterization this afternoon
-Full liquid breakfast, n.p.o. for lunch
- Continue aspirin, Plavix, losartan/HCTZ and metoprolol
- Lipids 04/19/2024 TC 184, HDL 37, LDL 126, triglycerides 108. Patient just placed on rosuvastatin 20 mg last week.
Plan discussed with patient, Dr. Maya, nurse Marnie
HPI:
Patient is a 74-year-old male with past medical history significant for hypertension, hyperlipidemia, untreated sleep apnea and palpitations who was recently here and underwent LAD stenting for chest pain. He was also found to have on treated
residual 50-60% tandem stenosis in mid circumflex. Patient reports he felt great when he left without chest pain. While he was at congregation on 04/18/2024 he developed chest pain. Shortly after when driving home pain started radiating into the arm
across check into the left-sided neck and jaw. Shortly thereafter he developed lightheadedness and some diaphoresis and called 911. He was given 4 baby ASA. Episode lasted 30 minutes. Initial troponin 1.06 with repeat troponin slowly trending
down. EKG sinus rhythm without ischemic changes. Chest x-ray showed no acute cardiopulmonary process. Blood pressure was reasonably controlled in emergency department.
Data Reviewed
-
EKG: Report Reviewed by me, Discussed with Physician, Discussed with Nurse and Discussed with Patient
Radiology: Report Reviewed by me, Discussed with Physician, Discussed with Nurse and Discussed with Patient
Labs: Labs Reviewed by me, Discussed with Physician, Discussed with Nurse and Discussed with Patient
Old Records: Reviewed
[2025-04-19 09:12] LABS: Glycohemoglobin (HgbA1c) 5.3 % (4.0-5.6)
--- NOTE | 2025-04-19 09:26 | W.PN.HOSP.TC ---
Today's Communication/Plan
-
Cardiac cath
Assessment / Plan
Assessment / Plan
Physical exam:
General: Acutely ill
HEENT: Normocephalic, Atraumatic and Moist Mucous Membranes
Respiratory: Clear to Auscultation; Negative Wheezes, Rales or Rhonchi
Cardiac: Regular Rhythm and S1/S2
GI: Soft, Nontender and Nondistended
Musculoskeletal: No Clubbing, No Cyanosis and No Edema
Neuro: Awake, Alert and Oriented, no neurological deficit
Psych: Calm
A/P:
#chest pain
#CAD
cardiac catheterization with PCI to LAD 04/14/2025
Trop 1.060, 1.010
CXR: No acute cardiopulmonary process.
EKG: NORMAL SINUS RHYTHM
POSSIBLE ANTERIOR INFARCT (CITED ON OR BEFORE 18-APR-2025)
- Admit to IVU
- trend troponin
- ED physician reports cardiology said to hold off on Heparin gtt unless chest pain returns, or troponin trends up
- continue aspirin, clopidogrel and metoprolol
- Cardiology evaluation appreciated. Plan for cardiac catheterization today
#hypertension
- continue losartan-HCTZ and metoprolol
#hyperlipidemia
- continue rosuvastatin
Code status: full code
DVT prophylaxis: Lovenox sq
Total time spent on today's encounter was 52 minutes which included time spent in counseling the patient/family regarding diagnosis and treatment plan as listed above, goals of care, and symptom management. Case was discussed with nursing staff,
specialists, and care coordinators/case management. All labs and imaging personally reviewed by me. Remainder the time spent in detailed review of previous records, lab data, imaging, and other medical provider documentation.
Anticipated Discharge: 24 - 48 hours
Subjective/Interval History
-
Date of Service: April 19, 2025
Patient continues to have some chest discomfort on and off. No shortness of breath.
Objective Data
-
Labs:
Laboratory Results
04/19/25
04:40
WBC 3.8 L
Hgb 15.4
Hct 42.7
Plt Count 154
Sodium 140
Potassium 4.1
Chloride 109 H
Carbon Dioxide 24
BUN 23 H
Creatinine 0.8
Glucose 94
Calcium 9.1
Total Bilirubin 2.4 H
AST 16 L
ALT 35
Alkaline Phosphatase 34 L
Vital Signs:
Vital Signs
Temp Pulse Resp BP Pulse Ox
97.3 F 60 20 120/65 95
04/19/25 07:14 04/19/25 09:00 04/19/25 07:14 04/19/25 07:11 04/19/25 07:15
[2025-04-19] MEDS: COZAAR 25 MG PO (10:29)
[2025-04-19] MEDS: TOPROL XL 25 MG PO ×2 (10:30→20:37)
[2025-04-19] MEDS: THERAGRAN 1 TABLET PO (10:30)
[2025-04-19] MEDS: PLAVIX 75 MG PO (10:30)
[2025-04-19] MEDS: PEPCID 20 MG PO ×2 (10:30→20:37)
[2025-04-19] MEDS: LOW STRENGTH ASPIRIN 81 MG PO (10:30)
[2025-04-19] MEDS: ORETIC 6.25 MG PO (10:30)
--- NOTE | 2025-04-19 12:58 | CM ---
spoke to pt in room, he is prev indep, lives with his in a 2 story home with 1 step to enter. he denies any dc planning needs or dme's. plan is for dc to home when medically stable.
--- NOTE | 2025-04-19 16:34 | ITS.CL.ANGIO ---
Balance And Hairspring Assembler - Angioplasty
Angioplasty
Procedure Report:
LEFT HEART CATHETERIZATION
Date of Procedure: April 19, 2025
Procedures performed:
1: Coronary angiography
2: Left ventricular hemodynamic assessment
3: Percutaneous coronary intervention of the circumflex first obtuse marginal branch with placement of 2.25 x 26 mm Rush drug-eluting stent
Primary Care Physician: Dr. Sha Sibley
Primary Campus Director: Dr. Jose Jasso
INDICATION: The patient is a 74-year-old man with a past medical history significant hypertension hyperlipidemia who presented with crescendo angina last week. Cath showed high-grade preocclusive mid LAD lesion that was stented without acute
complication. The patient did have some chest discomfort post stent implantation but EKG and echo was normal. He was discharged the following day and has felt well until yesterday he developed left arm and shoulder tightness that was different
from his prior symptoms. He ultimately called 911 and in the ER at [facility] symptoms had resolved after taking aspirin only. EKG was normal. Troponin was low-level positive and has trended downward. Echo was repeated and is again normal. In
light of his new symptoms, we elected to proceed with a repeat cath to both confirm that the prior LAD stent was widely patent and consider intervention on other branch vessel disease which may be causing angina.
ACCESS: The patient was prepped and draped in usual sterile fashion. A 6 Turkish sheath was placed in the right radial artery using the Seldinger over the wire technique.
HEMODYNAMIC FINDINGS (mmHg):
LV(s/d,EDP): 145/8, 14
Ao(s/d,m): 145/78, 107
ANGIOGRAPHIC FINDINGS:
Single-plane Left Ventriculography in NICOLAS Projection: Not done. Normal echo from earlier today.
Coronary Angiography:
Dominance: Right
Left Main: Medium caliber, widely patent.
Left Anterior Descending: The left anterior descending artery is a medium caliber vessel that gives rise to 1 medium caliber diagonal branch. The mid LAD has moderate luminal irregularities with a widely patent previously placed mid LAD stent and
KM-3 flow in all vessels.
Left Circumflex: The left circumflex is a relatively large caliber vessel that gives rise to a medium caliber high first obtuse marginal branch. The proximal vessel has moderate diffuse disease with 2 tandem lesions in the mid vessel. These were
previously felt to be 50 to 60% however in multiple projections today the distal lesion appears to be closer to 7080%. There is KM-3 distal flow in this vessel. The circumflex continues to give rise to 2 very small OM's and terminates in 3
medium caliber left-sided posterior left ventricular branches which have no focal obstructive disease.
Right Coronary: The right coronary artery is a relatively small caliber but dominant vessel that gives rise to a medium caliber posterior descending artery. These vessels are widely patent with mild luminal irregularities and appear unchanged from
prior angiography last week.
Percutaneous Coronary Intervention (PCI): In light of his recurrent symptoms and the above angiographic findings, I elected to proceed with a PCI of the OM1. The patient was pretreated with aspirin and Plavix. Unfractionated heparin was given. A
6 Turkish XB 3.5 guiding catheter was used to engage the left main. A Hi-Torque floppy wire was easily advanced across the OM1 lesion and into the distal vessel. Predilation was performed with a 2.0 x 20 mm balloon. Next a 2.25 x 22 mm Rush
drug-eluting stent was deployed at 14 ivon. The stent was postdilated with a 2.25 mm diameter noncompliant balloon to 18 ivon in a distal to proximal fashion taking care to stay within the stented margins. Clopidogrel 300 mg p.o. was given at the
end of the procedure on the table.
FINAL RESULT: 0% in-stent residual stenosis with an outstanding angiographic result and KM-3 flow in all vessels in both the circumflex stent and the previously placed LAD stent.
Fluoroscopy Time (min): 7.7
Radiation Dose (mGy): 583
DAP (Gy.cm2): 29
Closure device: None. A TR band was applied for hemostasis at the right wrist.
Complications: None.
ASSESSMENT:
1: Successful PCI of the circumflex OM1 with placement of a drug-eluting stent.
2: Widely patent previously placed LAD stent with unchanged residual coronary anatomy.
3: Normal left ventricular filling pressures.
CONCLUSIONS and RECOMMENDATIONS:
1: Routine post PCI and post drug-eluting stent medical therapy and monitoring.
2: Uninterrupted DAPT with aspirin and Plavix for a year and aspirin 81 mg daily indefinitely without interruption.
3: Close clinical follow-up as scheduled.
Javad Maya M.D.
Copy to: Dr. Sha Sibley
[2025-04-19] MEDS: LOVENOX 40 MG SC (18:13)
[2025-04-19] MEDS: CRESTOR 20 MG PO (18:13)
--- NOTE | 2025-04-19 18:38 | PTCARENOTE ---
Received pt post cath. Right radiac cath site ecchymotic w/ R band intact. Pt denies any chest pain. Post cath orders noted. Will monitor.
--- NOTE | 2025-04-19 22:35 | PTCARENOTE ---
Received patient at change of shift. SR on the monitor, HR in the 60s. R radial band removed and dressing applied, dressing CDI. Educated pt on activity restrictions, pt verbalizes understanding. No complaints from pt at this time, call hays within
reach.
[2025-04-19] MEDS: TYLENOL 650 MG PO (23:09)
[2025-04-20 04:15] VITALS: BP 123/72
[2025-04-20 04:43] LABS: Hematocrit 41.5 % (39.0-52.0); Hemoglobin 15.1 g/dL (13.0-18.0); Mean Corp Hgb Conc. 36.4 g/dL (33.0-37.0); Mean Corpuscular Hgb 32.5 pg (27.0-31.0); Mean Corpuscular Volume 89.2 fL (80.0-94.0); Mean Platelet Volume 9.8 fL (7.4-10.4); Platelet Count 151 10^3/uL (130-400); Red Blood Cell Count 4.65 10^6/uL (4.70-6.10); Red Cell Dist. Width 12.5 % (11.5-14.5); White Blood Cell Count 4.3 10^3/uL (4.8-10.8)
[2025-04-20 05:02] LABS: Blood Urea Nitrogen 20 mg/dl (9-20); Carbon Dioxide 26 mmol/L (22-30); Chloride 109 mmol/L (98-107); Estimated Creatinine Clearance 85 ml/min; Glucose 91 mg/dl (70-99); Potassium 4.1 mmol/L (3.5-5.1); Sodium 139 mmol/L (135-145); eGFR > 60.00
--- NOTE | 2025-04-20 07:52 | W.PN.CARDCBS ---
Addendum entered and electronically signed by George Tavares MD 04/20/25 10:20:
I saw and examined the patient.
The CLOTHING SALES ASSISTANT or PA's note was reviewed and I agree with the note.
Comment: General: Well developed, well nourished in NAD.
Stable cardiology status for discharge. Follow-up arranged. Discussed with primary service. Discussed with patient in detail
Original Note:
Today's Communication / Plan
-
Continue aspirin, Plavix, losartan/HCTZ, metoprolol, Crestor
Stable for d/c home today
Outpatient follow up has been arranged
Impression / Plan
-
Primary Care Physician: Dr. Sha Sibley
Primary Resource Development Manager: Dr. Jose Jasso
Impression:
Presented 04/18/2025 w/ chest pain with radiation into left arm, jaw associated with lightheadedness and diaphoresis
Abnormal troponin, peaked 1.060
CAD
s/p LAD with 3.0 x 22 mm Rush JIMENEZ 04/14/25
s/p LCX/OM 2.25 x 26 mm [place] drug-eluting stent 04/19/2025
Hyperlipidemia
HTN
Palpitations
HARSHAL intolerant to CPAP
Echocardiogram 04/12/2025 ([facility]): Preserved EF w/ normal LV systolic function with no regional wall motion abnormality and no significant valvular heart disease.
Echo 04/19/2025: EF 64%. Mild MR. Mild to moderate TR. PAP 30 mmHg
Cardiac cath 04/14/2025: LM: Patent. LAD: 99% mid LAD s/p 3.0 x 22 mm Rush drug-eluting stent. Left circumflex: Moderate diffuse disease with 2 tandem 50 to 60% stenosis in mid vessel with normal distal flow. RCA: LI. Septal to septal collateral
is noted to LAD
Cardiac cath 04/19/2025: LM: Patent. LAD: mid stent patent. Left circumflex: s/p LCX/OM 2.25 x 26 mm [place] drug-eluting stent 04/19/2025. RCA: LI.
Plan:
- Presented 04/18/2025 with 30 minutes of chest pain with radiation into left arm, jaw associated with lightheadedness and diaphoresis. Reports the symptoms were very different than symptoms he had prior to stenting
- Abnormal troponin, peaked 1.060. EKG sinus rhythm without ischemic changes.
- Underwent cardiac catheterization 04/19/2025 with 2.25 x 26 mm Rush JIMENEZ to left circumflex/OM. LAD stent was patent
- He is doing well post PCI without recurrent chest pain. ECG 04/20/25 stable in sinus rhythm without ischemic changes.
- Labs/renal function stable
- Echo 04/19/2025 showed preserved ejection fraction with mild MR and mild to moderate TR.
- Continue aspirin, Plavix, losartan/HCTZ and metoprolol
- Lipids 04/19/2024 TC 184, HDL 37, LDL 126, triglycerides 108. Patient just placed on rosuvastatin 20 mg last week. Continue to monitor and trend at follow-up
Plan discussed with patient, nursing and hospitalist
HPI:
Patient is a 74-year-old male with past medical history significant for hypertension, hyperlipidemia, untreated sleep apnea and palpitations who was recently here and underwent LAD stenting for chest pain. He was also found to have on treated
residual 50-60% tandem stenosis in mid circumflex. Patient reports he felt great when he left without chest pain. While he was at religion on 04/18/2024 he developed chest pain. Shortly after when driving home pain started radiating into the arm
across check into the left-sided neck and jaw. Shortly thereafter he developed lightheadedness and some diaphoresis and called 911. He was given 4 baby ASA. Episode lasted 30 minutes. Initial troponin 1.06 with repeat troponin slowly trending
down. EKG sinus rhythm without ischemic changes. Chest x-ray showed no acute cardiopulmonary process. Blood pressure was reasonably controlled in emergency department.
Progress Note - Resource Development Manager
Subjective
Date of Service: April 20, 2025
Patient seen and examined. Overall patient reports he is feeling well. He has been able to ambulate around room and unit without additional chest pain. Some minor discomfort at right radial site which seems to be improving.
Objective
Labs:
04/20/25 04:30
04/20/25 04:30
Labs
Hgb 15.1 g/dL (13.0-18.0) 04/20/25 04:30
Hct 41.5 % (39.0-52.0) 04/20/25 04:30
Plt Count 151 10^3/uL (130-400) 04/20/25 04:30
Sodium 139 mmol/L (135-145) 04/20/25 04:30
Potassium 4.1 mmol/L (3.5-5.1) 04/20/25 04:30
BUN 20 mg/dl (9-20) 04/20/25 04:30
Creatinine 0.8 mg/dL (0.7-1.3) 04/20/25 04:30
Glucose 91 mg/dl (70-99) 04/20/25 04:30
Troponins
04/18/25 04/18/25 04/18/25
14:13 16:28 20:23
Troponin I 1.060 H* 1.010 H* 0.931 H*
04/18/25
23:12
Troponin I Cancelled
Vital Signs and I&O:
Vital Signs
Temp Pulse Resp BP Pulse Ox
97.5 F 57 18 133/88 98
04/20/25 04:34 04/20/25 02:15 04/20/25 04:34 04/19/25 22:31 04/20/25 04:34
Vital Signs
Temp Pulse Resp BP Pulse Ox
97.5 F 57 18 133/88 98
04/20/25 04:34 04/20/25 02:15 04/20/25 04:34 04/19/25 22:31 04/20/25 04:34
Physical Exam
Physical Exam
GEN: No distress, awake, Ox3
HEENT: supple, anicteric, mmm
LUNGS: CTA, no wheezes/rales
CV: Reg, S1/S2, 1/6 syst LSB, no murmur
ABD: soft, BS+, NT/ND
EXT: No edema, clubbing or cyanosis. Right radial site clean dry, intact. No hematoma. Palpable radial/ulnar pulse
NEURO: Gross non-focal
SKIN: No rash, warm, dry, pink
[2025-04-20 08:08] LABS: ACT-LR - POC > 397 Seconds (116-155)
[2025-04-20] MEDS: LOW STRENGTH ASPIRIN 81 MG PO (08:29)
[2025-04-20] MEDS: PLAVIX 75 MG PO (08:29)
[2025-04-20] MEDS: THERAGRAN 1 TABLET PO (08:29)
[2025-04-20] MEDS: PEPCID 20 MG PO (08:29)
[2025-04-20 09:04] VITALS: BP 129/62
[2025-04-20] MEDS: TOPROL XL 25 MG PO (09:08)
[2025-04-20] MEDS: ORETIC 6.25 MG PO (09:08)
[2025-04-20] MEDS: COZAAR 25 MG PO (09:09)
--- NOTE | 2025-04-20 09:27 | W.PN.HOSP.TC ---
Today's Communication/Plan
-
Discharge planning today
Assessment / Plan
Assessment / Plan
Physical exam:
General: No acute distress
HEENT: Normocephalic, Atraumatic and Moist Mucous Membranes
Respiratory: Clear to Auscultation; Negative Wheezes, Rales or Rhonchi
Cardiac: Regular Rhythm and S1/S2
GI: Soft, Nontender and Nondistended
Musculoskeletal: No Clubbing, No Cyanosis and No Edema
Neuro: Awake, Alert and Oriented, no neurological deficit
Psych: Calm
A/P:
#chest pain recurrent non-STEMI
#CAD
cardiac catheterization with PCI to LAD 04/14/2025
Trop 1.060, 1.010
CXR: No acute cardiopulmonary process.
EKG: NORMAL SINUS RHYTHM
POSSIBLE ANTERIOR INFARCT (CITED ON OR BEFORE 18-APR-2025)
- Admit to IVU
- trend troponin
- ED physician reports cardiology said to hold off on Heparin gtt unless chest pain returns, or troponin trends up
- continue aspirin, clopidogrel and metoprolol
- Cardiology evaluation appreciated. S/p cardiac cath on 04/19-->s/p LCX/OM 2.25 x 26 mm [place] drug-eluting stent 04/19/2025.
- Cardiology cleared for discharge today on 04/20
#hypertension
- continue losartan-HCTZ and metoprolol
#hyperlipidemia
- continue rosuvastatin
Code status: full code
DVT prophylaxis: Lovenox sq
Anticipated Discharge: Today
Subjective/Interval History
-
Date of Service: April 20, 2025
No new complaints. No chest pain or shortness of breath
Objective Data
-
Labs:
Laboratory Results
04/20/25
04:30
WBC 4.3 L
Hgb 15.1
Hct 41.5
Plt Count 151
Sodium 139
Potassium 4.1
Chloride 109 H
Carbon Dioxide 26
BUN 20
Creatinine 0.8
Glucose 91
Calcium 9.0
Vital Signs:
Vital Signs
Temp Pulse Resp BP Pulse Ox
97.5 F 63 18 129/62 99
04/20/25 04:34 04/20/25 09:15 04/20/25 04:34 04/20/25 09:04 04/20/25 09:04
--- NOTE | 2025-04-20 09:27 | W.DCSUMMARY ---
Discharge Summary
Discharge Data
Date of Admission: 04/18/25
Date of Discharge: 04/20/25
Total time spent discharging patient (in min): 35
-
Pending Results: No
Hospital Course
Patient is 74 years old male with history of hypertension, hyperlipidemia, HARSHAL, CAD, and recent stent in LAD and also treated residual 50 to 60% tandem stenosis in mid circumflex and came back to the hospital for recurrent chest pain and elevated
troponin. Cardiology was consulted. Patient was taken to cardiac catheterization again during this hospital stay and while his LAD was patent they needed to do successful PCI of the circumflex OM1 with a drug-eluting stent. Patient did well
postprocedure. He will be continued on anti-ischemic regimen. Cardiology has cleared him for discharge. No other events were noticed. Patient will be discharged in relatively stable condition today.
Discharge duration: 35 minutes
Discharge Plan
-
Patient Disposition: Home (Routine Discharge)
Discharge Diagnosis/Procedures: Obstructive coronary artery disease with Angioplasty and stent to Obtuse Marginal artery
Diet: Low Cholesterol
Activity: Other activity
Additional Activity: As instructed by cardiology.
Blood Work: Please PCP to order CBC, BMP within 1 week
Other Services: Cardiac Rehab
Stand Alone Forms: DC Instructions- Cath/EP Lab
Referrals:
Sha Sibley MD [Family Provider] -
Terrence Jasso MD [Non-Admitting Privileges] - 05/07/25 2:45 pm (Cardiology followup appointment)
Prescriptions:
Continued
famotidine 20 mg Tablet
20 mg PO BID
metoprolol succinate 25 mg Tablet Extended Release 24 Hr
25 mg PO BID
losartan-hydrochlorothiazide 50-12.5 mg Tablet
0.5 tab PO DAILY
aspirin 81 mg Tablet,Chewable
81 mg PO DAILY
clopidogrel 75 mg tablet
75 mg PO DAILY Qty: 90 3RF
therapeutic multivitamin Tablet
1 tab PO DAILY
rosuvastatin 20 mg tablet
10 mg PO BID
Discharge Orders:
Discharge Patient (As Directed); Ordered 04/20/25
Ordered By: Po Forman
Care Plan Goals
Care Plan Goals:
Problem: Readiness for enhanced knowledge related to diagnosis and treatment plan
Goal: Understand your diagnosis and treatment plan needs, including medications if applicable.
Instructions: Know your diagnosis, underlying causes and treatment plan options, including medications if applicable. Consult with your health care team to learn about your diagnosis and treatment plan, including medications if applicable.
Discharge Date and Time
Discharge Date/Time: 04/20/25 12:26
Print Language: DOMINICAN
== END 2025-04-20 12:26 | disposition home or self-care (01) ==
LOC: SDS 18:31
PROVIDERS: Hospitalist; Nurse Practitioner Family; CONSULT PHYSICIAN Internal Medicine Cardiovascular Disease; EMERGENCY PHYSICIAN Emergency Medicine; FAMILY PHYSICIAN Family Medicine; OTHER PHYSICIAN Internal Medicine
DX: I25.10 Atherosclerotic heart disease of native coronary artery without angina pectoris (principal); I21.4 Non-ST elevation (NSTEMI) myocardial infarction; I10 Essential (primary) hypertension; E78.5 Hyperlipidemia, unspecified; Z95.5 Presence of coronary angioplasty implant and graft; Z79.82 Long term (current) use of aspirin; Z79.02 Long term (current) use of antithrombotics/antiplatelets; Z79.899 Other long term (current) drug therapy; G47.33 Obstructive sleep apnea (adult) (pediatric); Z82.49 Family history of ischemic heart disease and other diseases of the circulatory system; Z98.890 Other specified postprocedural states
CPT/HCPCS: 93308; 71046; 80048; 80053; 80061; 83036; 84484; 85025; 85027; 85347; 93005; 93321; 93325; 93458; 99285; C1725; C1769; C1874; C1887; C1894; C9600; Q9967